=== PATIENT | male | born 2000 ===

== ENCOUNTER 2024-06-08 10:56 | Emergency (ER) | payer SELFPAY ==
[2024-06-08] MEDS: Lidocaine 1% with EPINEPHrine 1:100,000 10 ML MDV INJECT ONE (12:22)
[2024-06-08] MEDS: Bacitracin Oint 1 GM U/D Packet TOP ONE (12:23)
[2024-06-08] MEDS: Diphtheria,Pertussis(Acell),Tetanus Vaccine 0.5 ML Syringe IM ONE (12:23)
[2024-06-08] MEDS: Acetaminophen 500 MG Tab PO ONE (12:34)
[2024-06-08] MEDS: Lidocaine 1% 10 ML MDV INJECT ONE (12:34)
[2024-06-08] MEDS: Ibuprofen 600 MG Tab PO ONE (12:35)
== END 2024-06-08 13:35 | disposition home or self-care (01) ==
LOC: MW.ED 10:56
DX: S09.90XA Unspecified injury of head, initial encounter (principal); S01.511A Laceration without foreign body of lip, initial encounter; F10.920 Alcohol use, unspecified with intoxication, uncomplicated; Z23 Encounter for immunization; Y04.8XXA Assault by other bodily force, initial encounter
CPT/HCPCS: 12015; 70450; 70486; 72125; 90471; 90715; 99283; A9270; J3490